=== PATIENT | female | born 1990 | race Caucasian/White ===

== ENCOUNTER 2021-07-12 21:18 | Emergency (ER) | payer OTHER, SELFPAY ==
[2021-07-12 21:23] VITALS: BP 136/79; PULSE 106; RESP 20; TEMP 36.5; O2SAT 100
--- NOTE | 2021-07-12 22:15 | PC.NURSE ---
No answer when called for lab draw.
--- NOTE | 2021-07-12 22:53 | PC.NURSE ---
No answer when called for room.
--- NOTE | 2021-07-12 23:19 | PC.NURSE ---
Not present in wr. removed from triage list.
== END 2021-07-12 23:22 | disposition left against medical advice (07) ==
PROVIDERS: PCP Physician Assistant
DX: O46.90 Antepartum hemorrhage, unspecified, unspecified trimester (principal)
CPT/HCPCS: 99199

== ENCOUNTER 2022-11-04 15:54 | Emergency (ER) | payer OTHER, SELFPAY ==
--- NOTE | 2022-11-04 15:57 | ED.DENTAL ---
HPI - Dental/Oral General Chief complaint: Dental/Oral Stated complaint: tooth pain Time Seen by Provider: 11/04/22 15:58 Source: patient Mode of arrival: ambulatory Limitations: no limitations History of Present Illness HPI Narrative: Ms. Trinidad is a 31-year-old female patient presenting to the clinic today with complaints of dental pain/abscess to the right upper premolar. She reports she noticed the abscess approximately 30 minutes ago and her tooth has been throbbing. Related Data Allergies Allergy/AdvReac Type Severity Reaction Status Date / Time buspirone [From BuSpar] Allergy Hives Verified 11/04/22 16:00 Review of Systems Review of Systems: Pertinent positives per HPI. Patient denies any fever, chills, rash, headache, visual changes, dizziness, cough, runny nose, sore throat, shortness of breath, chest pain, palpitations, nausea, vomiting, diarrhea, constipation, abdominal pain, or any urinary issues. PMFSH Comments At the time of my signature, I reviewed and agree with the nursing past medical, surgical, social, and family history. There is no relevant family history pertinent to the patient complaint. Exam Narrative: General: Well-developed, well nourished, in no apparent distress Head: Normocephalic, atraumatic Eyes: Pupils equally round and reactive to light bilaterally, EOM intact, sclera and conjunctive clear, no discharge, lids normal Ears: TMs intact and clear, ear canals clear, no drainage, grossly hearing normal. Nose: Nares patent, no discharge, no inflammation, no sinus tenderness. Mouth: Oropharynx without lesions or masses, poor dentition, MMM. Broken number 4 tooth with decay and abscess size measuring 0.5cm x 0.5cm Neck: Supple, trachea midline, no enlargement of anterior or posterior cervical nodes, no thyroid masses or goiter palpable. Cardio: Regular rate and rhythm, s1 and s2 normal, no murmur appreciated. Resp: Clear to auscultation bilaterally anteriorly and posteriorly, no rhonchi, rales, wheezing or rubs Course Course Emergency Course: Portions of this record may have been created with voice recognition software. Level of Care: Express Care Visit Vital Signs Vital signs: Vital signs reviewed MDM - Dental/Oral MDM Narrative Medical decision making narrative: At the time of visit patient is resting comfortably on the exam table. I suspect patient has a dental abscess. Prescription for amoxicillin was sent to pharmacy and supportive measures were discussed with the patient she voiced understanding discharge instructions and agrees to treatment plan. Differential Diagnosis Differential diagnosis: Likely gingival abscess, dental caries, toothache and dental abscess Discharge Plan Discharge Clinical Impression: Dental abscess Patient Disposition: Home, Self-Care Condition: Stable Instructions: Antibiotic Form, Dental Abscess (ED) Additional Instructions: Take amoxicillin as directed Take Tylenol/Motrin as needed for pain Increase fluids and stay well hydrated Follow-up with your dentist next week-contact their office tomorrow to make an appointment Go to the emergency room if symptoms worsen-high fever not controlled by Tylenol or Motrin, increase in swelling, increasing pain, lethargy, dehydration, weakness, shortness breath, or chest pain Prescriptions: New amoxicillin 875 mg tablet 875 mg PO Q12H 10 Days Qty: 20 0RF Follow-up/Referrals: UNKNOWN,DOCTOR [Primary Care Provider] - Time of Disposition: 16:09 Quality NIHSS Nursing Documentation ED NIHSS nursing documentation: reviewed/agree
[2022-11-04 15:59] VITALS: BP 140/76; PULSE 102; RESP 16; TEMP 36.3; O2SAT 100
[2022-11-04 16:01] VITALS: BP 140/76; PULSE 102; RESP 16; TEMP 36.3; O2SAT 100
== END 2022-11-04 16:13 | disposition home or self-care (01) ==
PROVIDERS: Emergency Provider Nurse Practitioner Family
DX: K04.7 Periapical abscess without sinus (principal)
CPT/HCPCS: 99213; G0463

== ENCOUNTER 2023-02-18 11:53 | Emergency (ER) | payer OTHER, SELFPAY ==
[2023-02-18 12:07] VITALS: BP 141/96; PULSE 104; RESP 16; TEMP 36.6; O2SAT 98
--- NOTE | 2023-02-18 12:11 | ED_ITS ---
HPI - Chest Pain General Chief Complaint: Chest Pain Stated Complaint: chest and abdominal pain Source: patient and RN notes reviewed Related Data Allergies Allergy/AdvReac Type Severity Reaction Status Date / Time buspirone [From BuSpar] Allergy Hives Verified 02/18/23 12:06 Review of Systems Review of Systems: Pertinent positives and pertinent negatives per HPI. PMFSH Comments At the time of my signature, I reviewed and agree with the nursing past medical, surgical, social, and family history. There is no relevant family history pertinent to the patient complaint. Exam Narrative: GENERAL: This is a well-nourished, well-developed patient, in no apparent distress. HEAD: normocephalic, atraumatic. EYES: PERRL. Sclera clear/white. Vision is grossly intact. EARS: External ears normal, auditory canals clear and without drainage, TMs normal without perforation. Hearing grossly intact. NOSE: External nose normal with no obvious nasal discharge, nares without redness, no rhinorrhea. THROAT: Mucous membranes moist, posterior pharynx clear. NECK: Neck supple, non-tender without lymphadenopathy, masses or thyromegaly. CARDIOVASCULAR: Regular rate and rhythm without murmurs, gallops, or rubs. RESPIRATORY: Clear to auscultation. Breath sounds equal bilaterally. No wheezes, rales, or rhonchi. GASTROINTESTINAL: Abdomen soft, non-tender, nondistended. Bowel sounds are active. No hepato-splenomegaly, or palpable masses. No guarding. SKIN: warm, intact with no suspicious lesions or rash, good texture and turgor. NEURO: awake, alert, and oriented to person, place and time. There were no obvious focal neurologic abnormalities. EXTREMITIES: No clubbing, cyanosis, or edema. No joint tenderness, effusion, or edema noted. BACK: Nontender without deformity or crepitance. No flank tenderness. Course Course Level of Care: Express Care Visit Vital Signs Vital signs: Vital Signs Temperature 97.9 F 02/18/23 12:07 Pulse Rate 104 H 02/18/23 12:07 Respiratory Rate 16 02/18/23 12:07 Blood Pressure 141/96 H 02/18/23 12:07 Pulse Oximetry 98 02/18/23 12:07 Oxygen Delivery Room Air 02/18/23 12:07 Temperature 97.9 F 02/18/23 12:07 Pulse Rate 104 H 02/18/23 12:07 Respiratory Rate 16 02/18/23 12:07 Blood Pressure 141/96 H 02/18/23 12:07 Pulse Oximetry 98 02/18/23 12:07 Oxygen Delivery Room Air 02/18/23 12:07 Reviewed Critical Care Time Critical Care Time Critical Care Time: No Discharge Plan Discharge Patient Disposition: Home, Self-Care Condition: Stable Instructions: Antibiotic Form Follow-up/Referrals: PHYSICIAN,STAFF ANESTHETIST [Primary Care Provider] -
== END 2023-02-18 12:29 | disposition left against medical advice (07) ==
PROVIDERS: Emergency Provider Internal Medicine Hematology & Oncology
DX: Z53.21 Procedure and treatment not carried out due to patient leaving prior to being seen by health care provider (principal)
CPT/HCPCS: 99199